=== PATIENT | female | born 1985 | race American Indian/Alaskan Native ===

== ENCOUNTER 2017-06-09 11:36 | Outpatient (CLI) | payer MEDICAID ==
--- NOTE | 2017-06-09 19:10 | XRay Report ---
FINAL REPORT EXAM: XR SPINE LUMBOSACRAL 6+V HISTORY: LUMBAR PAIN TECHNIQUE: AP, lateral, flexion, extension, bilateral oblique and coned-down views of lumbar spine. PRIORS: None. FINDINGS: Mild levoconvex curvature of lumbar spine. No loss of height or gross malalignment of lumbar vertebral bodies. No obvious osseous destruction. Lumbar disc spaces maintained. Mild facet sclerosis in L5-S1 level. Paraspinal soft tissues grossly unremarkable. IMPRESSION: 1. No acute osseous abnormality.
== END 2017-06-09 11:37 | disposition home or self-care (01) ==
LOC: SPVIMAG 11:36
PROVIDERS: ATTEND Physical Medicine & Rehabilitation
DX: M43.8X6 Other specified deforming dorsopathies, lumbar region (principal)
CPT/HCPCS: 72114